=== PATIENT | female | born 1975 ===

== ENCOUNTER 2018-04-12 11:00 | Outpatient (CLI) | payer OTHER ==
[~2018-04-12] VITALS: Ht 154.9 cm; Wt 57.6 kg
[2018-04-12] MEDS ORDERED: CEFUROXIME500 MG PO (11:45)
[2018-04-12] MEDS ORDERED: FLONASE16 GM NASAL (11:45)
[2018-04-12] MEDS ORDERED: ZANTAC300 MG PO (11:45)
[2018-04-12] MEDS ORDERED: LIPO-FLAVONOID1 EACH PO (11:46)
[2018-04-12] MEDS ORDERED: ZYRTEC10 MG PO (11:46)
== END 2018-04-12 11:15 | disposition home or self-care (01) ==
LOC: OFIC 805 11:00
DX: G44.89 Other headache syndrome (principal); R42 Dizziness and giddiness; J01.80 Other acute sinusitis; J32.8 Other chronic sinusitis; J34.2 Deviated nasal septum; H93.13 Tinnitus, bilateral; J37.0 Chronic laryngitis

== ENCOUNTER 2018-06-14 10:05 | Outpatient (CLI) | payer OTHER ==
[~2018-06-14] VITALS: Ht 152.4 cm; Wt 57.6 kg
[~2018-06-14 10:05] MED LIST: CEFUROXIME500 MG PO; FLONASE16 GM NASAL; LIPO-FLAVONOID1 EACH PO; ZANTAC300 MG PO; ZYRTEC10 MG PO
[2018-06-14] MEDS ORDERED: ZANTAC300 MG PO (11:16)
[2018-06-14] MEDS ORDERED: LIPO-FLAVONOID1 EACH PO (11:16)
[2018-06-14] MEDS ORDERED: AMOX-CLAV 875-1 EACH PO (11:17)
[2018-06-14] MEDS ORDERED: CLARITIN10 MG PO (11:17)
== END 2018-06-14 10:20 | disposition home or self-care (01) ==
LOC: OFIC 805 10:05
DX: R51 Headache (principal); R42 Dizziness and giddiness; J34.2 Deviated nasal septum; H93.13 Tinnitus, bilateral; J37.0 Chronic laryngitis; R49.8 Other voice and resonance disorders; J32.8 Other chronic sinusitis

== ENCOUNTER 2018-11-15 09:36 | Outpatient (CLI) | payer OTHER ==
[~2018-11-15] VITALS: Ht 152.4 cm; Wt 57.6 kg
[~2018-11-15 09:36] MED LIST changes: +AMOX-CLAV 875-1 EACH PO; +CLARITIN10 MG PO
== END 2018-11-15 10:00 | disposition home or self-care (01) ==
LOC: OFIC 805 09:36
DX: R42 Dizziness and giddiness (principal); J32.8 Other chronic sinusitis; J34.2 Deviated nasal septum; H93.13 Tinnitus, bilateral; J37.0 Chronic laryngitis; R49.9 Unspecified voice and resonance disorder